=== PATIENT | female | born 1965 | race Caucasian/White ===

== ENCOUNTER 2020-11-15 20:03 | Emergency (ER) | payer MEDICARE, MEDICAID, SELFPAY ==
[2020-11-15 21:00] VITALS: BP 136/85; PULSE 84; RESP 16; TEMP 36.3; O2SAT 96; BMI 33.7
--- NOTE | 2020-11-15 21:30 | HMH.EDUTC ---
[facility] [place] Disposition Clinical Impression: Right forearm cellulitis, Abscess of right forearm Disposition: Home, Self-Care Condition on Discharge: Good Instructions: Cellulitis Additional Instructions: Apply warm wet compresses to the affected sites three or four times per day for 15 minutes as tolerated. Take the antibiotics as directed. Apply the topical antibiotic ointment (mupirocin-bactroban) to the site as directed. Try to eat yogurt at least a couple times per day while you are on the antibiotics. Or, you could take an OTC probiotic. Follow up with your regular doctor. GO TO THE ER FOR ANY WORSENING SYMPTOMS OR CONCERNS Prescriptions: Sulfamethoxazole/Trimethoprim [Bactrim DS tablet] 1 each PO BID 10 Days #20 tab Transmission Status: Received by [facility] Mupirocin [Bactroban 2% Ointment 22gm tube] 1 applicatio TP TID 7 Days #1 tube Transmission Status: Received by [facility] cephALEXin [cephALEXin 500mg capsule] 500 mg PO Q6H 10 Days #40 cap Transmission Status: Received by [facility] Referrals: Chente Gupta MD [Primary Care Provider] - Time of Disposition: 22:05 Medical Decision Making - Medical Records Medical records reviewed: No: I reviewed the patient's medical records. - Scottie Inquiry Pt receiving controlled substance: No Vital Signs: 11/15/20 21:00 11/15/20 22:08 Temperature 97.4 F L 97.4 F L Temperature Source Oral Pulse Rate 84 Pulse Rate [Right Brachial] 84 Respiratory Rate 16 16 Blood Pressure 136/85 Blood Pressure [Right Arm] 136/85 Blood Pressure Mean [Right Arm] 102 Blood Pressure Source [Right Arm] Automatic Cuff Blood Pressure Position [Right Arm] Sitting 02 Sat by Pulse Oximetry 96 Oxygen Delivery Method Room Air Orders (Tests/Meds): ED MEDICATIONS Discontinued Medications Generic Name Dose Route Start Last Admin Trade Name Freq PRN Reason Stop Dose Admin Ceftriaxone Sodium 1 gm 11/15/20 21:55 11/15/20 22:08 Ceftriaxone 1gm Vial IM 11/15/20 21:56 1 gm ONCE ONE Administration Protocol Lidocaine HCl 0 ml 11/15/20 21:55 11/15/20 22:08 Lidocaine 1% 5ml Pf Vial IM 11/15/20 21:56 2.1 ml ONCE ONE Administration ORDERS Category Date Time Status Wound Culture and Gram Stain Stat Micro 11/15/20 Received [facility] [place] HPI - General Stated complaint: Insect bite R arm\ Time Seen by Provider: 11/15/20 21:30 Mode of Arrival: Ambulatory Source of Information: Patient Limitations: No Limitations Description of Symptoms (Recalled from Triage Doc. by RN): PATIENT C/O POSSIBLE SPIDER BITE TO RIGHT ARM HEENT Symptoms (Recalled from RN notes): No Resp Symptoms (Recalled from RN notes): No Skin Symptoms (Recalled from RN notes): Yes MS Symptoms (Recalled from RN notes): No Functional Status (Recalled from RN notes): WNL - History of Present Illness Provider Complaint: She states that she has had a bug bite on her right forearm. She first noticed it yesterday. Since then the redness around it has spread. She denies any fever/chills. She denies being diabetic. - Related Data Previous Rx's Medication Instructions Recorded Sulfamethoxazole/Trimethoprim 1 each PO BID #20 tablet 03/31/18 [Bactrim DS tablet] Mupirocin [Bactroban 2% Ointment 1 applicatio TP TID 7 Days #1 tube 11/15/20 22gm tube] Sulfamethoxazole/Trimethoprim 1 each PO BID 10 Days #20 tab 11/15/20 [Bactrim DS tablet] cephALEXin [cephALEXin 500mg 500 mg PO Q6H 10 Days #40 cap 11/15/20 capsule] Allergies Allergy/AdvReac Type Severity Reaction Status Date / Time atropine [From ] Allergy Verified 11/15/20 21:30 hyoscyamine [From ] Allergy Verified 11/15/20 21:30 loratadine [From Claritin] Allergy Verified 11/15/20 21:30 phenobarbital [From ] Allergy Verified 11/15/20 21:30 scopolamine [From ] Allergy Verified 11/15/20 21:30 terfenadine [From Seldane] A
[2020-11-15 22:08] VITALS: BP 136/85; PULSE 84; RESP 16; TEMP 36.3; O2SAT 96
== END 2020-11-15 22:17 | disposition home or self-care (01) ==
PROVIDERS: Emergency Provider Nurse Practitioner Family; PCP Family Medicine
DX: L02.413 Cutaneous abscess of right upper limb (principal); G43.709 Chronic migraine without aura, not intractable, without status migrainosus; F41.8 Other specified anxiety disorders; E78.5 Hyperlipidemia, unspecified; Z79.899 Other long term (current) drug therapy
CPT/HCPCS: 87070; 87077; 87186; 87205; 96372; 99202; G0463